=== PATIENT | female | born 1960 | race Hispanic/Latino ===

== ENCOUNTER 2016-11-02 07:45 | Emergency (ER) | payer OTHER ==
[~2016-11-02] VITALS: Ht 152.4 cm; Wt 63.5 kg
[~2016-11-02 07:45] MED LIST: DULOXETINE HCL60 MG PO; FLOMAX(MONOGRA0.4 MG PO; FOLIC ACID1 M1 PO; METFORMIN HCL850 M1 PO; METHOTREXA25 MG/1 M6 SC; METOPROLOL SUC100 M2 PO; MOTRIN 600 MG600 MG PO; PERCOCET 325 MG1 TA2 PO; PREDNISONE5 MG PO
--- NOTE | 2016-11-02 07:56 | ED GENERAL ADULT ---
History of Present Illness General Chief Complaint: Low Back Pain/Injury Stated Complaint: L SIDE BACK PAIN Source: patient Exam Limitations: no limitations Vital Signs & Intake/Output Vital Signs & Intake/Output Vital Signs Date Time Temp Pulse Resp B/P Pulse O2 O2 Flow FiO2 Ox Delivery Rate 11/02 1019 97.9 80 18 118/75 98 Room Air 11/02 0854 Room Air 11/02 0751 98.4 77 20 126/76 97 Room Air Allergies Coded Allergies: No Known Allergies (11/02/16) Reconcile Medications Adalimumab (Humira Pen) 40 MG/0.8 ML PEN.IJ.KIT 1 SYR SC Q2W RA (Reported) Duloxetine HCl 60 MG CAPSULE.DR 1 CAP PO DAILY RA (Reported) Folic Acid 1 MG TABLET 1 TAB PO DAILY SUPPLEMENT (Reported) Linagliptin (Tradjenta) 5 MG TABLET 1 TAB PO DAILY DM (Reported) Metformin HCl 850 MG TABLET 1 TAB PO BID DM (Reported) Methotrexate Sodium/Pf (Methotrexate 1 Gram/40 Ml Vial) 25 MG/ML VIAL 50 MG SC QWED RA (Reported) Metoprolol Succinate 100 MG TAB.ER.24H 1 TAB PO DAILY HEART (Reported) Triage Note: TRIAGE: PT TO ER C/C L FLANK PAIN SINCE WEDNESDAY, CONSTANT SINCE ONSET. HX OF KIDNEY STONES, FEELS SIMILIAR. Triage Nurses Notes Reviewed? yes Onset: Abrupt Duration: hour(s): Timing: recent history HPI: 11/02/16 9 AM This is a 56-year-old female presents to the emergency department complaining of left-sided flank . The patient states that she has a history of fibromyalgia and also renal colic. She is had prior intervention for kidney stones in the past. Now she presents with a sudden onset of severe left-sided flank pain. It is not worse with motion. The onset of the symptoms were abrupt, the duration was just this morning, the severity is significant as his symptoms required her to come to the emergency department for care. She denies hematuria now but has had episodes of gross hematuria in the past. She also has a history of rheumatoid arthritis, and is on immunosuppressive therapy. Past History Travel History Traveled to [place] past 21 day No Medical History Any Pertinent Medical History? 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 No Review of Systems Review of Systems Constitutional: Denies: fever. EENTM: Reports: no symptoms. Respiratory: Denies: short of breath. Cardiovascular: Denies: chest pain. GI: Denies: abdominal pain. Genitourinary: Reports: no symptoms. Musculoskeletal: Reports: back pain. Skin: Denies: rash. Neurological/Psychological: Reports: no symptoms. Hematologic/Endocrine: Reports: no symptoms. Immunologic/Allergic: Reports: see HPI. Physical Exam Physical Exam General Appearance: alert, awake, anxious, mild distress Head: atraumatic, normal appearance Eyes: Bilateral: normal appearance, PERRL, EOMI. Ears, Nose, Throat: normal pharynx, normal ENT inspection Neck: limited range of motion Respiratory: no respiratory distress Cardiovascular: regular rate/rhythm Peripheral Pulses: 4+ radial (R), 4+ radial (L) Gastrointestinal: non-tender Back: decreased range of motion, left lower lumbar tenderness, left straight leg raising is negative Extremities: no edema Neurologic/Psych: no motor/sensory deficits, awake, alert, oriented x 3 Skin: intact, normal color, warm/dry Core Measures ACS in differential dx? No CVA/TIA Diagnosis: No Severe Sepsis Present: No Septic Shock Present: No Progress Differential Diagnoses I considered the following diagnoses in my evaluation of the patient: [Epidural abscess, ureterolithiasis, pyelonephritis, exacerbation of rheumatoid arthritis, exacerbation of fibromyalgia] Plan of Care: Orders Procedure Date/time Status URINALYSIS 11/02 0835 Complete Laboratory Tests 11/02/16 0911: Urine Color YEL, Urine Clarity CLEAR, Urine pH 5.5, Ur Specific [place] >= 1.030 , Urine Protein NEG, Urine Ketones NEG, Urine Nitrite NEG, Urine Bilirubin NEG, Urine Urobilinogen 0.2, Ur Leukocyte Esterase NEG, Ur Microscopic EXAM NOT REQUIRED, Urine Hemoglobin NEG, Urine Glucose NEG Initial ED EKG: none Departure Departure Disposition: HOME OR SELF CARE Condition: Stable Clinical Impression Primary Impression: Back pain Secondary Impressions: Rheumatoid arthritis Referrals: YANETH NOGUEIRA,IVANA Darnell (PCP/Family) Departure Forms: Customer Survey General Discharge Information Comments 10:11 AM The patient has a history of rheumatoid arthritis and she is on Humira and methotrexate. She has not had any fever. Urinalysis is negative. CT scan of the abdomen and pelvis is negative for any acute findings. Her pain was relieved with Toradol. She will continue her tramadol and immunosuppressive therapy for the rheumatoid arthritis and has a follow-up appointment with her jailor this week. She was told to return to the emergency department if she had abdominal pain vomiting or fever CT scan results shown below- PATIENT: SHAW CHANDLER PRESENT AGE: 56 PATIENT ACCOUNT NO: [id number] : 60 LOCATION: [facility] ORDERING PHYSICIAN: JANINA BENNETT DO SERVICE DATE: 11/02/16 EXAM TYPE: CAT - CT ABD & PELVIS W/O IV CONTRAS EXAMINATION: CT ABDOMEN AND PELVIS WITHOUT CONTRAST CLINICAL INFORMATION: Left-sided flank pain, history of urolithiasis. COMPARISON: 07/04/2014. TECHNIQUE: Multidetector volumetric imaging was performed from the superior aspect of the liver through the pubic symphysis. Sagittal and coronal reformatted images were obtained on the technologist's workstation. DLP: 262.24 mGy-cm FINDINGS: LUNG BASES: Unremarkable. LIVER, GALLBLADDER, AND BILIARY TREE: Liver is mildly enlarged with the right lobe measuring 17 cm in craniocaudal dimension with diffuse decrease in attenuation consistent with diffuse steatosis with mild focal fatty sparing in the gallbladder fossa. The gallbladder is unremarkable with no evidence of radiopaque gallstones, gallbladder wall thickening, or obvious pericholecystic inflammatory changes. PANCREAS: Unremarkable. SPLEEN: Unremarkable. ADRENAL GLANDS: Unremarkable. KIDNEYS AND URETERS: The kidneys are normal in size, shape, and attenuation. No hydronephrosis, hydroureter, or calculi seen. No perinephric stranding. BLADDER: Unremarkable. Multiple small spherical pelvic calcifications appear unchanged consistent with phleboliths. GASTROINTESTINAL TRACT: There are a few scattered sigmoid colon diverticula without evidence of acute diverticulitis. There is a moderate amount of stool in the rectosigmoid. Appendix is normal-appearing. ABDOMINAL WALL: Intact without evidence of an underlying hernia. LYMPH NODES: There is no evidence of mesenteric or retroperitoneal lymphadenopathy. No inguinal adenopathy is seen. VASCULAR: There is minimal atherosclerotic aortic calcification without aneurysmal dilatation. PELVIC VISCERA: Uterus and ovaries are not visualized, likely previously removed. No focal masses or fluid collections are seen. OSSEOUS STRUCTURES: No focal destructive or sclerotic osseous lesions. IMPRESSION: No evidence of urolithiasis or hydronephrosis. There is diffuse hepatic steatosis with mild hepatomegaly. Largely unchanged. Postsurgical changes in the pelvis. Sigmoid colon diverticulosis without evidence of acute diverticulitis. DICTATED BY: MITESH DE LOS SANTOS MD DATE/TIME DICTATED:11/02/16914 CAT DOG OR OTHER PET GROOMER:JAYDON DATE/TIME TRANSCRIBED:11/02/16914 CONFIDENTIAL, DO NOT COPY WITHOUT APPROPRIATE AUTHORIZATION. <Electronically signed in Other Vendor System> SIGNED BY: MITESH DE LOS SANTOS MD [id number] Critical Care Note Critical Care Note Critical Care Time: non-applicable
[2016-11-02] MEDS ORDERED: TRADJENTA5 M1 PO (08:37)
[2016-11-02] MEDS ORDERED: HUMIRA PEN40 MG/0.8 SC (08:39)
--- NOTE | 2016-11-02 09:50 | CT SCAN REPORT ---
EXAMINATION: CT ABDOMEN AND PELVIS WITHOUT CONTRAST CLINICAL INFORMATION: Left-sided flank pain, history of urolithiasis. COMPARISON: 07/04/2014. TECHNIQUE: Multidetector volumetric imaging was performed from the superior aspect of the liver through the pubic symphysis. Sagittal and coronal reformatted images were obtained on the technologist's workstation. DLP: 262.24 mGy-cm FINDINGS: LUNG BASES: Unremarkable. LIVER, GALLBLADDER, AND BILIARY TREE: Liver is mildly enlarged with the right lobe measuring 17 cm in craniocaudal dimension with diffuse decrease in attenuation consistent with diffuse steatosis with mild focal fatty sparing in the gallbladder fossa. The gallbladder is unremarkable with no evidence of radiopaque gallstones, gallbladder wall thickening, or obvious pericholecystic inflammatory changes. PANCREAS: Unremarkable. SPLEEN: Unremarkable. ADRENAL GLANDS: Unremarkable. KIDNEYS AND URETERS: The kidneys are normal in size, shape, and attenuation. No hydronephrosis, hydroureter, or calculi seen. No perinephric stranding. BLADDER: Unremarkable. Multiple small spherical pelvic calcifications appear unchanged consistent with phleboliths. GASTROINTESTINAL TRACT: There are a few scattered sigmoid colon diverticula without evidence of acute diverticulitis. There is a moderate amount of stool in the rectosigmoid. Appendix is normal-appearing. ABDOMINAL WALL: Intact without evidence of an underlying hernia. LYMPH NODES: There is no evidence of mesenteric or retroperitoneal lymphadenopathy. No inguinal adenopathy is seen. VASCULAR: There is minimal atherosclerotic aortic calcification without aneurysmal dilatation. PELVIC VISCERA: Uterus and ovaries are not visualized, likely previously removed. No focal masses or fluid collections are seen. OSSEOUS STRUCTURES: No focal destructive or sclerotic osseous lesions. IMPRESSION: No evidence of urolithiasis or hydronephrosis. There is diffuse hepatic steatosis with mild hepatomegaly. Largely unchanged. Postsurgical changes in the pelvis. Sigmoid colon diverticulosis without evidence of acute diverticulitis.
[2016-11-02 10:19] VITALS: BP 118/75
== END 2016-11-02 10:29 ==
LOC: ERH 07:45
DX: M54.5 Low back pain (principal); M06.9 Rheumatoid arthritis, unspecified
CPT/HCPCS: 74176; 81003; 96361; 96374; J1885